=== PATIENT | female | born 1985 | race Caucasian/White ===

== ENCOUNTER 2018-05-31 05:34 | Day surgery (SDC) | payer MEDICAID ==
[2018-05-31 06:43] LABS: ADD MAN DIFF? NO
[2018-05-31 06:53] LABS: WHITE BLOOD COUNT 6.9 10^3/ul (4.8-10.8)
[2018-05-31 06:53] LABS: BASOPHIL # 0.1 10^3/ul (0.0-0.1); BASOPHILS % 0.9 % (0.0-2.0); EOSINOPHILS # 0.6 10^3/ul (0.0-0.5); EOSINOPHILS % 9.3 % (0.0-7.0); HEMATOCRIT 36.5 % (37.0-47.0); LYMPHOCYTES # 2.1 10^3/ul (0.8-2.9); MEAN CORPUSCULAR HEMOGLOBIN 27.6 pg (29.0-33.0); MEAN CORPUSCULAR HGB CONC 32.9 g/dl (32.0-37.0); MEAN CORPUSCULAR VOLUME 84.1 fl (82.0-101.0); MEAN PLATELET VOLUME 10.2 fl (7.4-10.4); MONOCYTE # 0.6 10^3/ul (0.3-0.9); MONOCYTES % 8.4 % (0.0-11.0); NEUTROPHIL # 3.5 10^3/ul (1.6-7.5); NEUTROPHILS % 50.1 % (39.0-77.0); PLATELET COUNT 301 10^3/UL (140-415); RED BLOOD COUNT 4.34 10^6/ul (4.20-5.40); RED CELL DISTRIBUTION WIDTH 12.8 % (11.5-14.5)
[2018-05-31] MEDS ORDERED: LIDOCAINE 2% (SDV) 5 ML INJ (07:05)
[2018-05-31] MEDS ORDERED: FENTAnyl 50 MCG/ML VIAL ×2 (07:05→08:57)
[2018-05-31] MEDS ORDERED: ROCURONIUM 50 MG INJ (07:05)
[2018-05-31] MEDS ORDERED: MIDAZOLAM 1 MG/ML 2 ML INJ (07:05)
[2018-05-31] MEDS ORDERED: PROPOFOL 20 ML (07:05)
[2018-05-31] MEDS ORDERED: CEFAZOLIN 1 GM INJ (07:06)
[2018-05-31] MEDS ORDERED: BUPIVACAINE 0.5%/EPI (SDV) 30 ML INJ (07:09)
[2018-05-31] MEDS: BUPIVACAINE 0.5%/EPI (SDV) 30 ML INJ INJ (07:30)
[2018-05-31] MEDS ORDERED: ONDANSETRON 4 MG INJ (07:39)
[2018-05-31] MEDS ORDERED: FAMOTIDINE 20 MG INJ (07:40)
[2018-05-31] MEDS ORDERED: DEXAMETHASONE 4 MG/ML 5 ML INJ (07:40)
[2018-05-31] MEDS ORDERED: METOCLOPRAMIDE 10 MG INJ (07:40)
[2018-05-31] MEDS ORDERED: SUGAMMADEX SODIUM 200 MG/2 ML VIAL IV (08:09)
[2018-05-31] MEDS ORDERED: ONDANSETRON 4 MG INJ IV (08:30)
[2018-05-31] MEDS ORDERED: RACEPINEPHRINE 2.25%(NEB) 0.5 ML AMP HHN (08:30)
[2018-05-31] MEDS ORDERED: FENTAnyl 50 MCG/ML VIAL IV ×2 (08:30)
[2018-05-31] MEDS ORDERED: OXYCODONE/ACETAMINOPHEN (5/325) TAB PO ×2 (08:30)
[2018-05-31] MEDS ORDERED: MEPERIDINE 25 MG INJ IV (08:30)
[2018-05-31] MEDS ORDERED: ALBUTEROL 0.083% (NEB) 2.5 MG/3 ML AMP HHN (08:30)
[2018-05-31] MEDS ORDERED: ALBUTEROL 0.083% (NEB) 2.5 MG/3 ML AMP (08:33)
[2018-05-31] MEDS ORDERED: ALBUTEROL 0.5% (NEB) 2.5 MG/0.5 ML AMP (08:33)
[2018-05-31] MEDS: FENTAnyl 50 MCG/ML VIAL IV ×2 (09:07→09:13)
== END 2018-05-31 10:00 | disposition home or self-care (01) ==
LOC: SDS 05:34
DX: Z30.2 Encounter for sterilization (principal); J45.998 Other asthma
CPT/HCPCS: 58670; 84702; 85025; 86850; 86900; 86901; 94664